=== PATIENT | female | born 1970 | race Caucasian/White ===

== ENCOUNTER → 2022-01-01 | Outpatient (CLI) | payer OTHER ==
[~2022-01-01] MED LIST: CHOL10002 PO; FEXPSEER PO; Imitrex50 MG JT; OXYACE5T PO; Ultram50 MG PO; WOMEN MULTIVIT1 EACH PO
== END | disposition home or self-care (01) ==
LOC: LAB 11:00 → PLD 11:00 → LAB SHORT 11:00
DX: L82.1 Other seborrheic keratosis (principal)
CPT/HCPCS: 88305